=== PATIENT | male | born 1955 | race Asian ===

== ENCOUNTER → 2019-05-02 | Outpatient (CLI) | payer MEDICARE | END | disposition home or self-care (01) | LOC: RADPV 11:28 | PROVIDERS: ATTEND Legal Medicine | DX: M17.12 Unilateral primary osteoarthritis, left knee (principal); M25.462 Effusion, left knee; I70.0 Atherosclerosis of aorta; I10 Essential (primary) hypertension | CPT/HCPCS: 72040; 72100 ==